=== PATIENT | female | born 2000 | race Two or more races ===

== ENCOUNTER 2022-01-15 02:41 | Emergency (ER) | payer MEDICAID ==
[~2022-01-15] VITALS: Ht 165.1 cm; Wt 50.0 kg
[2022-01-15] MEDS ORDERED: IBUPROFEN 600MG TABLET PO ONE (03:00)
[2022-01-15] MEDS ORDERED: IBUP-2029 MT (04:49)
[2022-01-15 06:20] VITALS: BP 135/83
== END 2022-01-15 06:21 | disposition home or self-care (01) ==
LOC: ER 02:41
DX: M79.18 Myalgia, other site (principal); M54.2 Cervicalgia; G89.11 Acute pain due to trauma; V49.49XA Driver injured in collision with other motor vehicles in traffic accident, initial encounter; Y93.89 Activity, other specified; Y92.488 Other paved roadways as the place of occurrence of the external cause
CPT/HCPCS: 71045; 72040; 81025; 99284